=== PATIENT | female | born 1990 | race Caucasian/White ===

== ENCOUNTER → 2024-06-03 09:52 | Outpatient (REF) | payer BC, SELFPAY | LOC: HWRAD 09:52 | PROVIDERS: ATTENDING PHYSICIAN Obstetrics & Gynecology; FAMILY PHYSICIAN Internal Medicine | DX: R10.2 Pelvic and perineal pain (principal); N80.9 Endometriosis, unspecified | CPT/HCPCS: 76856 ==

== ENCOUNTER → 2024-08-14 08:31 | Outpatient (REF) | payer BC, SELFPAY | LOC: PAVMRI 08:31 | PROVIDERS: ATTENDING PHYSICIAN Obstetrics & Gynecology; FAMILY PHYSICIAN Internal Medicine | DX: R10.2 Pelvic and perineal pain (principal); N80.9 Endometriosis, unspecified | CPT/HCPCS: 72197; A9575 ==

== ENCOUNTER 2024-11-24 05:50 | Day surgery (SDC) | payer BC, SELFPAY ==
[2024-11-18 11:12] LABS: Hematocrit 41.7 % (37.0-47.0); Hemoglobin 13.7 g/dL (12.0-16.0); Mean Corp Hgb Conc. 32.9 g/dL (33.0-37.0); Mean Corpuscular Volume 89.7 fL (81.0-99.0); Platelet Count 118 10^3/uL (130-400); Red Cell Dist. Width 13.2 % (11.5-14.5)
[2024-11-18 11:42] LABS: Blood Urea Nitrogen 12 mg/dl (7-17); Calcium 9.3 mg/dl (8.4-10.2); Carbon Dioxide 28 mmol/L (22-30); Chloride 108 mmol/L (98-107); Glucose 81 mg/dl (70-99); Potassium 3.8 mmol/L (3.5-5.1); Sodium 142 mmol/L (135-145); eGFR > 60.00
[2024-11-18 14:26] VITALS: BMI 19.2
[2024-11-24] VITALS (8 sets, daily range): BP systolic 104–121; BP diastolic 52–79; BMI 19.2
[2024-11-24] MEDS: TRANSDERM-SCOP 1 PATCH TRANSDERM (06:38)
[2024-11-24] MEDS: NORMOSOL-R/PLASMALYTE-A 1000 IV (06:39)
[2024-11-24] MEDS: ROXICODONE 5 MG PO (10:07)
== END 2024-11-24 10:34 | disposition home or self-care (01) ==
LOC: SDS 05:50
PROVIDERS: ATTENDING PHYSICIAN Obstetrics & Gynecology; FAMILY PHYSICIAN Internal Medicine
DX: N80.01 Superficial endometriosis of the uterus (principal); N80.3 Endometriosis of pelvic peritoneum; K66.0 Peritoneal adhesions (postprocedural) (postinfection); G89.29 Other chronic pain
CPT/HCPCS: 58662; 52204; 36415; 80048; 85027; 86850; 86900; 86901; 88305; 93005